=== PATIENT | female | born 1940 | race Caucasian/White ===

== ENCOUNTER → 2021-05-10 | Emergency (ER) | payer OTHER ==
[~2021-05-10] VITALS: Ht 170.2 cm; Wt 70.3 kg
[~2021-05-10] MED LIST: ALPRAZOLAM ODT2 MG; LEXAPRO20 MG; NITROFURANTOIN100 MG PO
== END | disposition left against medical advice (07) ==
LOC: ER 14:53
DX: Z53.21 Procedure and treatment not carried out due to patient leaving prior to being seen by health care provider (principal)